=== PATIENT | female | born 1990 | race Two or more races ===

== ENCOUNTER → 2016-11-04 14:25 | Emergency (ER) | payer OTHER ==
--- NOTE | 2016-11-04 17:07 | RAD ---
INDICATION: Left adnexal pain. COMPARISON: There are no prior studies available for comparison. TECHNIQUE: Multiple real-time transvaginal images of the pelvis were obtained. FINDINGS: The uterus is normal in size, shape and echogenicity. The uterus measured 7.0 x 3.1 x 4.7 cm. The endometrial echo measured 0.2 cm in thickness. The right ovary measured 3.8 x 2.1 x 2.4 cm. The left ovary measured 3.3 x 1.3 x 2.4 cm. There is vascular flow within both ovaries. There are small subcentimeter bilateral follicular cysts. There is a small amount of free intraperitoneal fluid in the cul-de-sac. IMPRESSION: SMALL AMOUNT OF FREE INTRAPERITONEAL FLUID IN THE CUL-DE-SAC, OTHERWISE UNREMARKABLE.
[2016-11-04 17:45] LABS: Hematocrit 37 % (35-47); Mean Corpuscular HGB Conc 33 g/dl (31-36); Mean Corpuscular Hemoglobin 24 pg (27-31); Mean Corpuscular Volume 72 fL (80-97); Mean Platelet Volume 8 um3 (7.4-10.4); Red Cell Distribution Width 18 % (10.5-15); White Blood Count 11.6 10^3/ul (3.5-10.8)
[2016-11-04 17:46] LABS: Add Diff/Slide Review? Slide Review Added; Comments Flag Yes
[2016-11-04 18:01] LABS: ALT 24 U/L (7-52); AST 34 U/L (13-39); Alkaline Phosphatase 31 U/L (34-104); Anion Gap 7 mmol/L (2-11); BUN/Creatinine Ratio 12.5 (8-20); Blood Urea Nitrogen 8 mg/dL (6-24); C Reactive Protein < 1.00 mg/L (< 5.00); CO2 Carbon Dioxide 26 mmol/L (22-32); Calcium 8.8 mg/dL (8.6-10.3); Chloride 102 mmol/L (101-111); EGFR African American 146.6 (>60); Globulin 2.8 g/dL (2-4); Glucose 81 mg/dL (70-100); Lipase 32 U/L (11.0-82.0); Potassium 3.6 mmol/L (3.5-5.0); Sodium 135 mmol/L (133-145); Total Protein 6.8 g/dL (6.4-8.9)
[2016-11-04 18:39] LABS: Urine Bacteria Absent (Absent); Urine Bilirubin Negative (Negative); Urine Glucose Negative (Negative); Urine Nitrite Negative (Negative)
[2016-11-04 19:19] VITALS: BP 96/69
--- NOTE | 2016-11-06 11:28 | ED ---
Alex Barrow Benjamin, scribed for Tung Espino MD on 11/04/16 at 1626 . Abdominal Pain/Female - HPI Summary HPI Summary: 26yo female c/o sudden onset of LLQ pain earlier this morning. Also reports nausea. Pt was seen at and was sent to ED for further evaluation. Pain has spontaneously resolved en route. Area is continuous still operator to touch however. Pt is currently in her menstrual period but denies any vaginal bleeding. Pt has hx of ovarian cyst rupture in the past. - History of Current Complaint Chief Complaint: EDAbdPain Stated Complaint: ABD PAIN LT SIDE Time Seen by Provider: 11/04/16 16:00 Hx Obtained From: Patient ?: No - on her MP Onset/Duration: Sudden Onset, Lasting Hours, Resolved - pain resolved, but continuous still operator to touch Timing: Constant Severity Initially: Moderate Severity Currently: Mild Pain Intensity: 5 Pain Scale Used: 0-10 Numeric Location: Discrete At: LLQ Radiates: No Aggravating Factor(s): Other: - touch Alleviating Factor(s): Nothing Associated Signs and Symptoms: Positive: Nausea. Negative: Vaginal Bleeding Allergies/Adverse Reactions: Allergies Allergy/AdvReac Type Severity Reaction Status Date / Time No Known Allergies Allergy Verified 11/04/16 16:26 Home Medications: Home Medications Albuterol HFA INHALER* [Ventolin HFA Inhaler*] 2 puff INH Q4H PRN 11/04/16 [ History Confirmed 11/04/16] PMH/Surg Hx/FS Hx/Imm Hx History: Reports: Other Problems/Disorders - ovarian cyst rupture Infectious Disease History: No Infectious Disease History: Denies: Traveled Outside the [place] in Last 30 Days - Family History Known Family History: Positive: Cardiac Disease - Social History Occupation: Student Lives: Alone Alcohol Use: Occasionally Hx Substance Use: No Substance Use Type: Reports: None Hx Tobacco Use: No Smoking Status (MU): Never Smoked Tobacco Review of Systems Constitutional: Negative Eyes: Negative ENT: Negative Positive: Other Respiratory: Negative Positive: Abdominal Pain - LLq, Nausea Genitourinary: Negative Positive: no symptoms reported Musculoskeletal: Negative Skin: Negative Neurological: Negative Psychological: Normal All Other Systems Reviewed And Are Negative: Yes Physical Exam Triage Information Reviewed: Yes Vital Signs On Initial Exam: Initial Vitals Temp Pulse Resp BP Pulse Ox 98.5 F 79 15 95/60 98 11/04/16 14:28 11/04/16 14:28 11/04/16 14:28 11/04/16 14:28 11/04/16 14:28 Vital Signs Reviewed: Yes Appearance: Positive: Well-Appearing, No Pain Distress, Well-Nourished Skin: Positive: Warm, Skin Color Reflects Adequate Perfusion, Dry Head/Face: Positive: Normal Head/Face Inspection Eyes: Positive: EOMI, KAREN ENT: Positive: Normal ENT inspection, Hearing grossly normal Neck: Positive: Supple, Nontender Respiratory/Lung Sounds: Positive: Clear to Auscultation, Breath Sounds Present Cardiovascular: Positive: RRR, Pulses are Symmetrical in both Upper and Lower Extremities Abdomen Description: Positive: Soft, Other: - no rebound. Negative: Nontender - mild diffuse abdominal tenderness Bowel Sounds: Positive: Present Musculoskeletal: Positive: Strength/ROM Intact Neurological: Positive: Sensory/Motor Intact, Alert, Oriented to Person Place, Time Psychiatric: Positive: Affect/Mood Appropriate Diagnostics - Vital Signs Vital Signs Temp Pulse Resp BP Pulse Ox 11/04/16 14:28 98.5 F 79 15 95/60 98 - Laboratory Lab Results: Lab Results 11/04/16 11/04/16 11/04/16 Range/Units 17:32 17:32 17:32 WBC 11.6 H (3.5-10.8) 10^3/ul RBC 5.10 (4.0-5.4) 10^6/ul Hgb 12.0 (12.0-16.0) g/dl Hct 37 (35-47) % MCV 72 L (80-97) fL MCH 24 L (27-31) pg MCHC 33 (31-36) g/dl RDW 18 H (10.5-15) % Plt Count 297 (150-450) 10^3/ul MPV 8 (7.4-10.4) um3 Neut % (Auto) 80.8 (38-83) % Lymph % (Auto) 14.3 L (25-47) % [place] % (Auto) 3.8 (1-9) % Eos % (Auto) 0.8 (0-6) % Baso % (Auto) 0.3 (0-2) % Absolute Neuts (auto) 9.3 H (1.5-7.7) 10^3/ul Absolute Lymphs (auto) 1.7 (1.0-4.8) 10^3/ul Absolute Monos (auto) 0.4 (0-0.8) 10^3/ul Absolute Eos (auto) 0.1 (0-0.6) 10^3/ul Absolute Basos (auto) 0 (0-0.2) 10^3/ul Absolute Nucleated RBC 0 10^3/ul Nucleated RBC % 0 Sodium 135 (133-145) mmol/L Potassium 3.6 (3.5-5.0) mmol/L Chloride 102 (101-111) mmol/L Carbon Dioxide 26 (22-32) mmol/L Anion Gap 7 (2-11) mmol/L BUN 8 (6-24) mg/dL Creatinine 0.64 (0.51-0.95) mg/dL Est GFR ( Amer) 146.6 (>60) Est GFR (Non-Af Amer) 114.0 (>60) BUN/Creatinine Ratio 12.5 (8-20) Glucose 81 (70-100) mg/dL Lactic Acid 0.6 (0.5-2.0) mmol/L Calcium 8.8 (8.6-10.3) mg/dL Total Bilirubin 0.90 (0.2-1.0) mg/dL AST 34 (13-39) U/L ALT 24 (7-52) U/L Alkaline Phosphatase 31 L (34-104) U/L C-Reactive Protein < 1.00 (< 5.00) mg/L Total Protein 6.8 (6.4-8.9) g/dL Albumin 4.0 (3.2-5.2) g/dL Globulin 2.8 (2-4) g/dL Albumin/Globulin Ratio 1.4 (1-3) Lipase 32 (11.0-82.0) U/L Beta HCG, Quant < 0.60 mIU/mL Urine Color Urine Appearance Urine pH (5-9) Ur Specific [place] (1.010-1.030) Urine Protein (Negative) Urine Ketones (Negative) Urine Blood (Negative) Urine Nitrate (Negative) Urine Bilirubin (Negative) Urine Urobilinogen (Negative) Ur Leukocyte Esterase (Negative) Urine WBC (Auto) (Absent) Urine RBC (Auto) (Absent) Ur Squamous Epith Cells (Absent) Urine Bacteria (Absent) Urine Glucose (Negative) 11/04/16 Range/Units 17:52 WBC (3.5-10.8) 10^3/ul RBC (4.0-5.4) 10^6/ul Hgb (12.0-16.0) g/dl Hct (35-47) % MCV (80-97) fL MCH (27-31) pg MCHC (31-36) g/dl RDW (10.5-15) % Plt Count (150-450) 10^3/ul MPV (7.4-10.4) um3 Neut % (Auto) (38-83) % Lymph % (Auto) (25-47) % [place] % (Auto) (1-9) % Eos % (Auto) (0-6) % Baso % (Auto) (0-2) % Absolute Neuts (auto) (1.5-7.7) 10^3/ul Absolute Lymphs (auto) (1.0-4.8) 10^3/ul Absolute Monos (auto) (0-0.8) 10^3/ul Absolute Eos (auto) (0-0.6) 10^3/ul Absolute Basos (auto) (0-0.2) 10^3/ul Absolute Nucleated RBC 10^3/ul Nucleated RBC % Sodium (133-145) mmol/L Potassium (3.5-5.0) mmol/L Chloride (101-111) mmol/L Carbon Dioxide (22-32) mmol/L Anion Gap (2-11) mmol/L BUN (6-24) mg/dL Creatinine (0.51-0.95) mg/dL Est GFR ( Amer) (>60) Est GFR (Non-Af Amer) (>60) BUN/Creatinine Ratio (8-20) Glucose (70-100) mg/dL Lactic Acid (0.5-2.0) mmol/L Calcium (8.6-10.3) mg/dL Total Bilirubin (0.2-1.0) mg/dL AST (13-39) U/L ALT (7-52) U/L Alkaline Phosphatase (34-104) U/L C-Reactive Protein (< 5.00) mg/L Total Protein (6.4-8.9) g/dL Albumin (3.2-5.2) g/dL Globulin (2-4) g/dL Albumin/Globulin Ratio (1-3) Lipase (11.0-82.0) U/L Beta HCG, Quant mIU/mL Urine Color Straw Urine Appearance Clear Urine pH 7.0 (5-9) Ur Specific [place] 1.006 L (1.010-1.030) Urine Protein Negative (Negative) Urine Ketones Negative (Negative) Urine Blood 1+ H (Negative) Urine Nitrate Negative (Negative) Urine Bilirubin Negative (Negative) Urine Urobilinogen Negative (Negative) Ur Leukocyte Esterase Negative (Negative) Urine WBC (Auto) Trace(0-5/hpf) (Absent) Urine RBC (Auto) Trace(0-2/hpf) (Absent) Ur Squamous Epith Cells Present H (Absent) Urine Bacteria Absent (Absent) Urine Glucose Negative (Negative) Result Diagrams: 11/04/16 17:32 11/04/16 17:32 Lab Statement: Any lab studies that have been ordered have been reviewed, and results considered in the medical decision making process. - Additional Comments Diagnostic Additional Comments: US TRANSVAGINAL IMPRESSION: SMALL AMOUNT OF FREE INTRAPERITONEAL FLUID IN THE CUL-DE-SAC, OTHERWISE UNREMARKABLE. ED physician has reviewed the radiology report and agrees with the findings. Re-Evaluation - Re-Evaluation First Eval Re-Evaluation Time: 18:30 Comment: Reviewed pts lab and imaging results with the pt. Pt is still pain free. Abdominal Pain Fem Course/Dx - Course Course Of Treatment: Ms. Norris presented with a sudden onset of LLQ pain that had mostly resolved prior to arrival. She was mildy tender in the LLQ. HEr W/ U was unrevealing and she was warned about possiblities such as intermittent torsion, infection or kidney stone. She will F/U if problems return or continue. - Diagnoses Provider Diagnoses: Abdominal pain Discharge - Discharge Plan Condition: Stable Disposition: HOME Patient Education Materials: Acute Abdominal Pain (ED) Referrals: [facility] [Outside] [facility] - Garett BALLARD [Primary Care Provider] - The documentation as recorded by the Alex perez Benjamin accurately reflects the service I personally performed and the decisions made by me, Tung Espino MD.
== END | disposition home or self-care (01) ==
LOC: ED 14:25
DX: R10.32 Left lower quadrant pain (principal); R11.0 Nausea
CPT/HCPCS: 36415; 76830; 80053; 81003; 81015; 83605; 83690; 84702; 85025; 86140; 99283